=== PATIENT | female | born 1985 | race Caucasian/White ===

== ENCOUNTER → 2023-08-21 13:34 | Outpatient (REF) | payer BC, SELFPAY | LOC: PNTC 13:34 | PROVIDERS: ATTENDING PHYSICIAN Obstetrics & Gynecology | DX: Z36.82 Encounter for antenatal screening for nuchal translucency (principal); Z36.0 Encounter for antenatal screening for chromosomal anomalies; O09.529 Supervision of elderly multigravida, unspecified trimester | CPT/HCPCS: 36415; 76801; 76813 ==

== ENCOUNTER → 2023-09-17 10:35 | Outpatient (REF) | payer BC, SELFPAY | LOC: PNTC 10:35 | PROVIDERS: ATTENDING PHYSICIAN Obstetrics & Gynecology | DX: O09.521 Supervision of elderly multigravida, first trimester (principal) | CPT/HCPCS: 76805 ==

== ENCOUNTER → 2023-10-23 13:09 | Outpatient (REF) | payer BC, SELFPAY | LOC: PNTC 13:09 | PROVIDERS: ATTENDING PHYSICIAN Obstetrics & Gynecology | DX: O09.529 Supervision of elderly multigravida, unspecified trimester (principal) | CPT/HCPCS: 76811 ==

== ENCOUNTER → 2023-11-22 08:49 | Outpatient (REF) | payer BC, SELFPAY | LOC: PNTC 08:49 | PROVIDERS: ATTENDING PHYSICIAN Obstetrics & Gynecology | DX: O99.210 Obesity complicating pregnancy, unspecified trimester (principal); O09.519 Supervision of elderly primigravida, unspecified trimester | CPT/HCPCS: 76816 ==

== ENCOUNTER → 2023-12-24 10:18 | Outpatient (REF) | payer BC, SELFPAY | LOC: PNTC 10:18 | PROVIDERS: ATTENDING PHYSICIAN Obstetrics & Gynecology | DX: O99.210 Obesity complicating pregnancy, unspecified trimester (principal); O09.529 Supervision of elderly multigravida, unspecified trimester; O43.219 Placenta accreta, unspecified trimester | CPT/HCPCS: 76816; 93976 ==

== ENCOUNTER → 2024-01-07 09:49 | Outpatient (REF) | payer BC, SELFPAY | LOC: PNTC 09:49 | PROVIDERS: ATTENDING PHYSICIAN Obstetrics & Gynecology | DX: O09.519 Supervision of elderly primigravida, unspecified trimester (principal); O99.210 Obesity complicating pregnancy, unspecified trimester | CPT/HCPCS: 59025; 76818 ==

== ENCOUNTER → 2024-01-14 09:41 | Outpatient (REF) | payer BC, SELFPAY | LOC: PNTC 09:41 | PROVIDERS: ATTENDING PHYSICIAN Obstetrics & Gynecology | DX: O99.210 Obesity complicating pregnancy, unspecified trimester (principal); O09.519 Supervision of elderly primigravida, unspecified trimester | CPT/HCPCS: 59025; 76815 ==

== ENCOUNTER → 2024-01-21 09:49 | Outpatient (REF) | payer BC, SELFPAY | LOC: PNTC 09:49 | PROVIDERS: ATTENDING PHYSICIAN Obstetrics & Gynecology | DX: O09.529 Supervision of elderly multigravida, unspecified trimester (principal); O99.210 Obesity complicating pregnancy, unspecified trimester | CPT/HCPCS: 59025; 76816 ==

== ENCOUNTER → 2024-01-28 10:27 | Outpatient (REF) | payer BC, SELFPAY | LOC: PNTC 10:27 | PROVIDERS: ATTENDING PHYSICIAN Obstetrics & Gynecology | DX: O09.529 Supervision of elderly multigravida, unspecified trimester (principal); O99.210 Obesity complicating pregnancy, unspecified trimester | CPT/HCPCS: 59025; 76815 ==

== ENCOUNTER 2024-02-04 10:16 | Observation (INO) | payer BC, SELFPAY ==
[2024-02-04 10:41] LABS: Hematocrit 36.7 % (37.0-47.0); Hemoglobin 12.3 g/dL (12.0-16.0); Mean Corp Hgb Conc. 33.5 g/dL (33.0-37.0); Mean Corpuscular Hgb 30.1 pg (27.0-31.0); Mean Corpuscular Volume 89.7 fL (81.0-99.0); Mean Platelet Volume 12.2 fL (7.4-10.4); Platelet Count 109 10^3/uL (130-400); Red Blood Cell Count 4.09 10^6/uL (4.20-5.40); Red Cell Dist. Width 14.3 % (11.5-14.5); White Blood Cell Count 9.7 10^3/uL (4.8-10.8)
[2024-02-04 10:54] LABS: ALT (SGPT) 14 U/L (0-35); AST (SGOT) 16 U/L (14-36); Albumin 3.6 g/dl (3.5-5.0); Alkaline Phosphatase 62 U/L (38-126); Blood Urea Nitrogen 9 mg/dl (7-17); Calcium 8.8 mg/dl (8.4-10.2); Carbon Dioxide 18 mmol/L (22-30); Chloride 106 mmol/L (98-107); Glucose 126 mg/dl (70-99); Sodium 136 mmol/L (135-145); Total Bilirubin 0.3 mg/dl (0.2-1.3); Total Protein 6.3 g/dl (6.3-8.2); eGFR > 60.00
[2024-02-04 11:08] VITALS: BP 123/82; BMI 42.4
[2024-02-04 11:10] LABS: Urine Protein 11 mg/dl
== END 2024-02-04 12:00 | disposition home or self-care (01) ==
LOC: PNTC-IN 10:16
PROVIDERS: ADMITTING PHYSICIAN Student in an Organized Health Care Education/Training Program; ATTENDING PHYSICIAN Obstetrics & Gynecology
DX: O99.213 Obesity complicating pregnancy, third trimester (principal); O09.523 Supervision of elderly multigravida, third trimester; O13.3 Gestational [pregnancy-induced] hypertension without significant proteinuria, third trimester; Z3A.36 36 weeks gestation of pregnancy
CPT/HCPCS: 59025; 76815; 80053; 82570; 84156; 85027; G0378

== ENCOUNTER → 2024-02-12 07:43 | Outpatient (REF) | payer BC, SELFPAY | LOC: PNTC 07:43 | PROVIDERS: ATTENDING PHYSICIAN Obstetrics & Gynecology | DX: O99.210 Obesity complicating pregnancy, unspecified trimester (principal); O99.214 Obesity complicating childbirth; O09.521 Supervision of elderly multigravida, first trimester | CPT/HCPCS: 36415; 59025 ==

== ENCOUNTER → 2024-02-18 09:46 | Outpatient (REF) | payer BC, SELFPAY | LOC: PNTC 09:46 | PROVIDERS: ATTENDING PHYSICIAN Obstetrics & Gynecology | DX: O99.210 Obesity complicating pregnancy, unspecified trimester (principal) | CPT/HCPCS: 59025; 76816 ==

== ENCOUNTER 2024-02-22 08:39 | Inpatient (IN) | payer BC, SELFPAY ==
[2024-02-22] MEDS: LR 1000 IV (09:30)
[2024-02-22 09:40] VITALS: BP 136/86; BMI 41.6
[2024-02-22 09:48] LABS: Hematocrit 40.3 % (37.0-47.0); Hemoglobin 13.2 g/dL (12.0-16.0); Mean Corp Hgb Conc. 32.8 g/dL (33.0-37.0); Mean Corpuscular Hgb 29.7 pg (27.0-31.0); Mean Corpuscular Volume 90.8 fL (81.0-99.0); Red Blood Cell Count 4.44 10^6/uL (4.20-5.40); Red Cell Dist. Width 14.4 % (11.5-14.5); White Blood Cell Count 10.7 10^3/uL (4.8-10.8)
[2024-02-22 09:55] LABS: INR 0.96; PT 13.1 Sec (11.4-14.6)
[2024-02-22 09:56] LABS: APTT 28.9 Sec (23.4-35.0)
[2024-02-22] MEDS: TYLENOL 1000 MG PO (10:46)
[2024-02-22] MEDS: BICITRA 30 ML PO (10:46)
[2024-02-22 11:21] LABS: Platelet Count 116.6 10^3/uL (130-400)
[2024-02-22] MEDS: ANCEF 10 IV (11:22)
[2024-02-22] MEDS: MORPHINE SULFATE 2 MG IV (14:43)
[2024-02-22] MEDS: TORADOL 15 MG IV (18:47)
[2024-02-23] MEDS: TORADOL 15 MG IV ×3 (00:03→12:57)
[2024-02-23] MEDS: TYLENOL 650 MG PO ×4 (01:00→19:11)
[2024-02-23 05:58] LABS: White Blood Cell Count 13.3 10^3/uL (4.8-10.8)
[2024-02-23 07:16] LABS: Hemoglobin 10.4 g/dL (12.0-16.0); Red Blood Cell Count 3.43 10^6/uL (4.20-5.40)
[2024-02-23 07:17] LABS: Hematocrit 31.2 % (37.0-47.0); Mean Corp Hgb Conc. 33.3 g/dL (33.0-37.0); Mean Corpuscular Hgb 30.3 pg (27.0-31.0); Red Cell Dist. Width 14.4 % (11.5-14.5)
[2024-02-23 07:39] LABS: Mean Platelet Volume 11.8 fL (7.4-10.4); Platelet Count 155 10^3/uL (130-400)
--- NOTE | 2024-02-23 17:24 | W.PN.ANS.POP ---
Anesthesia Post Operative
- Anesthesia Post Op Note
Vital Signs Stable-See Nursing Note: Yes
Airway Patent: Yes
Adequate Pain Control: Yes
Change in Mental Status: No
Current Postoperative Nausea & Vomiting: No
Anesthesia Complications: No
General Anesthetic Recall: No
Unplanned Admission: No
Post Op Hydration Adequate: Yes
- -
Pt doing well as per RN- resting comfortably with no anesthesia related c/o.
[2024-02-23] MEDS: MOTRIN 600 MG PO (20:00)
[2024-02-24] MEDS: PERCOCET 5/325 1 TABLET PO (00:52)
[2024-02-24] MEDS: MOTRIN 600 MG PO ×2 (02:05→11:47)
[2024-02-24] MEDS: SENOKOT-S 1 TABLET PO (11:47)
--- NOTE | 2024-02-24 11:52 | W.DS.TRANS ---
DC Summary - Meter Technician
-
Discharge Instructions:
Discharge Diagnosis/Procedures delivered by repeat section.
Anemia.
Diet Regular
Activity No strenuous activity
Driving Restrictions No driving for 2 weeks
Bathing Restrictions OK to Shower
Instructions:
Stand-Alone Forms: LDRP Delivery
Changes to Home Medications: No
Discharge Medications:
DC Medications w/original date entered in [facility]
prenat.vits,marcio,uql-emnb-kjfsi 1 tab DAILY Supplement 02/04/24
acetaminophen 325 mg tablet 650 mg (2 x 325 mg) PO Q4HPRN PRN mild pain #0 tabs 02/23/24
ibuprofen 600 mg tablet 600 mg PO Q6HPRN PRN cramps #0 tabs 02/23/24
Home Medication Changes
Pending Results: Yes
Additional Pending Results:
surgical pathology
Total time spent discharging patient (in min): 20
[2024-02-26 13:20] LABS: Syphilis/T. pallidum Ab Reflex Negative (Negative)
== END 2024-02-24 16:18 | disposition home or self-care (01) | DRG 785 ==
LOC: LDRP 08:39
PROVIDERS: ADMITTING PHYSICIAN Obstetrics & Gynecology
PROC: 10D00Z1 Extraction of Products of Conception, Low, Open Approach (ICD-10-PCS; 2024-02-22)
PROC: 0UT70ZZ Resection of Bilateral Fallopian Tubes, Open Approach (ICD-10-PCS; 2024-02-22)
DX: O34.211 Maternal care for low transverse scar from previous cesarean delivery (principal); Z3A.39 39 weeks gestation of pregnancy; Z37.0 Single live birth; K66.0 Peritoneal adhesions (postprocedural) (postinfection); Z30.2 Encounter for sterilization; Z80.3 Family history of malignant neoplasm of breast; O99.62 Diseases of the digestive system complicating childbirth; O99.824 Streptococcus B carrier state complicating childbirth
CPT/HCPCS: 88302; 58605; 85027; 85049; 85610; 85730; 86780; 86850; 86870; 86900; 86901; 86920; 86922